=== PATIENT | female | born 1980 | race Caucasian/White ===

== ENCOUNTER 2019-12-14 11:04 | Outpatient (CLI) | payer MEDICARE, MEDICAID, SELFPAY ==
--- NOTE | 2019-12-14 11:15 | FL_ITS ---
WS: [id number] FL barium swallow modifd [id number] REASON FOR EXAM: Other dysphagia FLUOROSCOPY TIME: 3.8 minutes FINDINGS: Fluoroscopic guidance for speech pathology. There is no definite aspiration changes noted. The esophagus is mildly dilated suggesting mild esophagospasm and there appeared to be moderate reflu x seen. Please see speech pathology is workup for details. FL/FL barium swallow modifd [id number] IMPRESSION: Please see speech pathology workup. Mild esophageal spasm with moderate reflux.
== END 2019-12-14 11:05 | disposition home or self-care (01) ==
PROVIDERS: Family Provider Internal Medicine; PCP Internal Medicine; Visit Provider Internal Medicine
DX: K22.4 Dyskinesia of esophagus (principal); R13.10 Dysphagia, unspecified
CPT/HCPCS: 74230; 92611

== ENCOUNTER 2020-08-29 11:28 | Outpatient (CLI) | payer MEDICARE, MEDICAID, SELFPAY ==
--- NOTE | 2020-08-29 11:33 | MM_ITS ---
WS: [id number] BILATERAL DIGITAL SCREENING MAMMOGRAPHY WITH CAD CLINICAL INFORMATION: SCREENING HISTORY: Screening mammogram. No current complaints. COMPARISON: TECHNIQUE: Bilateral CC and MLO views. FINDINGS: Scattered fibroglandular densities bilaterally. No suspicious focal mass, asymmetry, calcifications, or architectural distortion. No evidence of malignancy. Punctate and lucent centered calcifications. MM/[place] [id number] IMPRESSION: BI-RADS: 2-Benign FOLLOW UP: 1 Year Follow-up Recommend return to annual screening mammography.
== END 2020-08-29 11:29 | disposition home or self-care (01) ==
LOC: RADSHAW 11:32
PROVIDERS: PCP Internal Medicine; Visit Provider Internal Medicine
DX: Z12.31 Encounter for screening mammogram for malignant neoplasm of breast (principal)
CPT/HCPCS: 77067

== ENCOUNTER 2020-12-31 11:28 | Outpatient (CLI) | payer MEDICARE, MEDICAID, SELFPAY ==
--- NOTE | 2020-12-31 11:30 | FL_ITS ---
WS: [id number] Modified barium swallow, 12/31/2020 Clinical Data: T17.320A - Food in larynx causing asphyxiation, initial encounter Comparison: None. Fluoroscopy time: 2.5 minutes. Findings: The patient initiated swallowing with minimal hesitation. There is only minimal residue in the pirifo rm sinus and vallecula which cleared quickly with swallowing. There was no penetration or aspiration. The distal esophagus showed dilatation and abnormal patella deep. The patient may have difficulty in opening the gastroesophageal sphincter. FL/FL barium swallow modifd [id number] Impression: 1. Good swallowing motility with only minimal residue which cleared quickly wit h swallowing. 2. No penetration or aspiration. 3. Retained barium in the distal esophagus and the patient may have narrowing o f the gastroesophageal region and difficulty opening the sphincter.
== END 2020-12-31 11:29 | disposition home or self-care (01) ==
LOC: RAD 11:33
PROVIDERS: PCP Internal Medicine; Visit Provider Internal Medicine
DX: T17.320A Food in larynx causing asphyxiation, initial encounter (principal); X58.XXXA Exposure to other specified factors, initial encounter
CPT/HCPCS: 74230; 92611

== ENCOUNTER 2021-11-07 11:51 | Emergency (ER) | payer MEDICARE, MEDICAID, SELFPAY ==
--- NOTE | 2021-11-07 11:57 | XRR_ITS ---
PROCEDURE INFORMATION: Exam: XR Chest Exam date and time: 11/07/2021 11:57 AM Age: 40 years old Clinical indication: Dyspnea and fever TECHNIQUE: Imaging protocol: XR of the chest. Views: 1 view. COMPARISON: XA FL barium swallow modifd [id number] 12/31/2020 12:50 PM FINDINGS: Lungs: There is a right basilar infiltrate consistent with pneumonia. Pleural spaces: Unremarkable. No pleural effusion. No pneumothorax. Heart/Mediastinum: The heart is normal for the AP projection. Bones/joints: Status post median sternotomy. XR/XR chest 1V portable [id number] IMPRESSION: Right lower lobe pneumonia.
--- NOTE | 2021-11-07 11:57 | ECG_ITS ---
[facility] Test Date: 2021-11-07 Pat Name: Alix Correia Department: Room: Gender: Female Dioramist: : 1980 Requested By: Bharath Cooper Order Number: [id number] Reading MD: INGRID GAMBLE Measurements Intervals [place] Rate: 69 P: 48 TN: 154 QRS: -70 QRSD: 146 T: 42 QT: 429 QTc: 460 Interpretive Statements SINUS RHYTHM LEFT AXIS DEVIATION [QRS AXIS < -30] RIGHT BUNDLE BRANCH BLOCK [120+ ms QRS DURATION, UPRIGHT V1, 40+ ms S IN I/aVL/V4/V5/V6] No previous ECG available for comparison Electronically Signed On 11-07-2021 19:56:34 LOCAL SALES ASSOCIATE by INGRID GAMBLE [email or web address]
[2021-11-07 12:13] VITALS: BP 105/62; PULSE 74; RESP 16; TEMP 36.9; O2SAT 94
[2021-11-07 13:01] VITALS: BP 103/68; PULSE 81; RESP 18; O2SAT 94
--- NOTE | 2021-11-07 13:16 | ED_ITS ---
HPI - COVID General: Chief Complaint: COVID symptoms Stated Complaint: Covid + O2 running low Time Seen by Provider: 11/07/21 11:55 Triage information: Has fever, cough or shortness of breath . Exposure to COVID + person last 14 days History of Present Illness: HPI Narrative: 40-year-old female presents to the [facility] with complaint of shortness of breath. Tested positive for COVID earlier this week. Only uses oxygen at night but they have recorded a few oxygen sats that were below 90 at home. Since arriving here she is maintained in the mid and upper 90s on room air. She has been congested and having cough b ut otherwise seems to be okay low-grade fever. MD complaint: known COVID positive Prior covid testing: yes, results known COVID 19 common symptoms: positive fever(s), chills, cough, non-productive cough, dyspnea, fatigue, body aches and nasal congestion; negative nausea, vomiting or diarrhea COVID 19 other sytmptoms: negative chest pain or requiring oxygen Onset (ago): day(s) Severity: mild Pertinent comorbid conditions: obesity and other (Down syndrome) Treatment prior to arrival: acetaminophen COVID Results: No Data to Display Review of Systems Const: Reports: fever(s), chills, body aches and fatigue ENMT: Reports: nasal congestion Card: Denies: chest pain, edema, dyspnea on exertion or orthopnea Resp: Reports: dyspnea and non-productive cough GI: Denies: abdominal pain, nausea, vomiting, hematemesis, coffee ground emesis, diarrhea, constipation, bloating, hematochezia or melena : Denies: flank pain, difficulty voiding, dysuria, urinary frequency or urinary urgency Skin/Breast: Denies: rash or pruritus PFSH ED PFSH: Medical History Alzheimer's dementia Auditory hallucination Surgical History H/O heart surgery Social History Smoking and tobacco status: never smoked Alcohol intake: never History of recent travel: No Physical Exam Const: GENERAL APPEARANCE: cooperative and comfortable HENMT: COMMON NORMALS: normocephalic, atraumatic and hearing grossly normal bilaterally HEAD & SCALP: normocephalic and atraumatic Resp: AUSCULTATION: crackles and wheezes Cardio: COMMON NORMALS: regular rate, regular rhythm and No murmurs present (Cardio) RATE: regular rate RHYTHM: regular rhythm HEART SOUNDS: Murmur heart sound present systolic Location: right sternal border Intensity: III/ GI: COMMON NORMALS: Soft to palpation and No hepatosplenomegaly present AUSCULTATION: Yes normoactive bowel sounds PALPATION: Yes Soft to palpation, No Tenderness to palpation present (GI), No Guarding due to palpation present (GI) and Yes No hepatosplenomegaly present Extremity: COMMON NORMALS: normal to inspection, capillary refill normal, no clubbing, cyanosis or edema, no calf tenderness and no pedal edema Skin: COMMON NORMALS: no rashes or lesions noted GENERAL SKIN EXAM: no rashes or lesions noted Course Vital Signs: Vital signs: Vital Signs Temperature 98.4 F 11/07/21 12:13 Pulse Rate 70 11/07/21 13:21 Respiratory Rate 16 11/07/21 13:21 Blood Pressure 110/66 11/07/21 13:21 Pulse Oximetry 95 11/07/21 13:55 MDM - COVID Lab Data: Labs: Lab Results 11/07/21 11/07/21 13:16 13:16 WBC 10.9 10^3/uL H 10 ^3/uL (4.0-10.0) RBC 3.64 10^6/uL L 10 ^6/uL (4.1-5.3) Hgb 12.2 g/dL g/dL (11.5-15.3) Hct 36.1 % L % (37.0-47.0) MCV 99.2 fl H fl (81-99) MCH 33.5 pg pg (28.0-34.0) MCHC 33.8 g/dL g/dL (30.0-36.0) RDW 12.5 % % (12.1-15.1) Plt Count 215 10^3/cmm 10^3 /cmm (130-400) MPV 10.0 fL fL (7.4-10.4) Neut % (Auto) 72.3 % % Lymph % (Auto) 17.6 % % Thurston % (Auto) 9.3 % % Eos % (Auto) 0.0 % % Baso % (Auto) 0.4 % % Neut # (Auto) 7.88 10^3/uL H 10 ^3/uL (1.8-7.7) Lymph # (Auto) 1.9 10^3/uL 10^3/ uL (0.8-4.8) Thurston # (Auto) 1.0 10^3/uL H 10^ 3/uL (0.2-0.9) Eos # (Auto) 0.0 10^3/uL 10^3/ uL (0.0-0.8) Baso # (Auto) 0.0 10^3/uL 10^3/ uL (0.0-0.1) Nucleated RBC % (a uto) 0 % % Nucleated RBCs # 0.0 /100WBC /100W BC Sodium 138 mmol/L mmol/L (136-145) Potassium 4.2 mmol/L mmol/L (3.5-5.1) Chloride 102 mmol/L mmol/L (98-107) Carbon Dioxide 22 mmol/L mmol/L (22-29) Anion Gap 18.2 (5-19) BUN 11 mg/dL mg/dL (6-20) Creatinine 0.8 mg/dL mg/dL (0.5-0.9) GFR Calculation 80.3 mL/min L mL/ min (90-130) Glucose 81 mg/dL mg/dL (65-115) Calculated Osmolal ity 284 mOsm/kg L mOs m/kg (285-295) Calcium 8.3 mg/dL L mg/dL (8.5-10.5) Total Bilirubin 0.6 mg/dL mg/dL (0.15-1.2) AST 24 U/L U/L (0-32) ALT 29 U/L U/L (0-33) Alkaline Phosphata se 85 IU/L IU/L (35-105) Creatine Kinase 30 U/L U/L (26-192) C-Reactive Protein 150.9 mg/L H mg/L (0.0-4.9) Total Protein 6.9 g/dL g/dL (6.6-8.7) Albumin 3.4 g/dL L g/dL (3.5-5.2) Globulin 3.5 g/dL g/dL (1.3-4.6) COVID Results: 2 No Data to Display Discharge Plan Discharge Patient Disposition: Home Clinical Impression: COVID-19, Trisomy 21 Condition: Stable Prescriptions: No Action hydrocortisone [Preparation H Hydrocortisone] 1 % cream 1 applic TOPICAL QID PRNRF: 0 melatonin 3 mg tablet extended release PO .at bedtime RF: 0 levocetirizine [Xyzal] 5 mg tablet 5 mg PO DAILY RF: 0 levothyroxine [Synthroid] 50 mcg tablet 50 mcg PO DAILY RF: 0 docusate sodium 100 mg capsule 100 mg PO DAILY RF: 0 melatonin 3 mg capsule 3 mg PO DAILY RF: 0 carbamide peroxide 6.5 % drops 5 drop EAR-BOTH Q12H RF: 0 multivitamin Tablet 1 tab PO DAILY RF: 0 ibuprofen 200 mg tablet 200 mg PO Q6H PRNRF: 0 diphenhydramine HCl [Benadryl Allergy] 25 mg tablet 25 mg PO .at bedtime PRNRF: 0 CeraVe Cream TOPICAL BID RF: 0 dextromethorphan-guaifenesin [Adult Robitussin Peak Cold DM] 10-100 mg/5 mL liquid 5 ml PO Q4H PRNRF: 0 magnesium hydroxide [Milk of Magnesia] 400 mg/5 mL suspension 15 ml PO DAILY PRNRF: 0 pediatric multivitamin Tablet,Chewable 1 tab PO DAILY RF: 0 bismuth subsalicylate 525 mg/15 mL suspension 525 mg PO .every 4 hours PRNRF: 0 acetaminophen [Tylenol] 325 mg capsule 325 mg PO .every 4 hours PRNRF: 0 alum-mag hydroxide-simeth 200-200-20 mg/5 mL suspension 10 ml PO QID PRNRF: 0 lactulose 10 gram/15 mL syrup PO RF: 0 risperidone 0.25 mg tablet 0.25 mg PO BID Qty: 90 RF: 3 Discharge Orders: Discharge ED (Routine); Ordered 11/07/21 Ordered By: Bharath Burrell Referrals: Jhon Rojas MD [Primary Care Provider] - Discharge Diet: Usual diet Discharge Activity: Increase activity as tolerated Patient Instructions: Opioid Safety Activity Restrictions/Additional Instructions: Case management will make arrangements for you to receive monoclonal antibodies in the infusion clinic next week. Continue to monitor home oxygen saturation with pulse oximeter if sats are less than 90% on room air at rest wear your oxygen at 2 L/min. If they are worse than this or do not improve with the oxygen return to the emergency room. Coding Level of Care Code ED Gaming Associate for Yaron Simeon Exam Detailed
[2021-11-07 13:21] VITALS: BP 110/66; PULSE 70; RESP 16; O2SAT 93
[2021-11-07 13:24] LABS: Basophils % 0.4 %; Hematocrit 36.1 % (37.0-47.0); Hemoglobin 12.2 g/dL (11.5-15.3); Lymphocytes # 1.9 10^3/uL (0.8-4.8); Lymphocytes % 17.6 %; Mean Corpuscular HGB Conc 33.8 g/dL (30.0-36.0); Mean Corpuscular Hemoglobin 33.5 pg (28.0-34.0); Mean Corpuscular Volume 99.2 fl (81-99); Monocytes % 9.3 %; Neutrophils # 7.88 10^3/uL (1.8-7.7); Neutrophils % 72.3 %; Nucleated Red Blood Cells % 0 %; Platelet Count 215 10^3/cmm (130-400); Red Blood Count 3.64 10^6/uL (4.1-5.3); Red Cell Distribution Width 12.5 % (12.1-15.1); White Blood Count 10.9 10^3/uL (4.0-10.0)
[2021-11-07 13:42] LABS: Alanine Aminotransferase 29 U/L (0-33); Albumin Level 3.4 g/dL (3.5-5.2); Alkaline Phosphatase 85 IU/L (35-105); Anion Gap 18.2 (5-19); Aspartate Amino Transferase 24 U/L (0-32); Blood Urea Nitrogen 11 mg/dL (6-20); C Reactive Protein 150.9 mg/L (0.0-4.9); Calcium 8.3 mg/dL (8.5-10.5); Carbon Dioxide 22 mmol/L (22-29); Chloride 102 mmol/L (98-107); Creatine Phosphokinase 30 U/L (26-192); Globulin 3.5 g/dL (1.3-4.6); Glomerular Filtration Rate 80.3 mL/min (90-130); Glucose 81 mg/dL (65-115); Osmolality Calculated 284 mOsm/kg (285-295); Potassium 4.2 mmol/L (3.5-5.1); Sodium 138 mmol/L (136-145); Total Bilirubin 0.6 mg/dL (0.15-1.2); Total Protein 6.9 g/dL (6.6-8.7)
[2021-11-07 13:55] VITALS: O2SAT 91; O2SAT 95
[2021-11-07 14:38] VITALS: BP 115/68; PULSE 72; RESP 20; O2SAT 94
== END 2021-11-07 14:30 | disposition home or self-care (01) ==
PROVIDERS: Emergency Provider Family Medicine; PCP Internal Medicine
DX: U07.1 COVID-19 (principal); Q90.9 Down syndrome, unspecified; G30.9 Alzheimer's disease, unspecified; F02.80 Dementia in other diseases classified elsewhere, unspecified severity, without behavioral disturbance, psychotic disturbance, mood disturbance, and anxiety
CPT/HCPCS: 71045; 80053; 82550; 85025; 86140; 93005; 99283

== ENCOUNTER 2021-11-10 10:45 | Inpatient (IN) | payer MEDICARE, MEDICAID, SELFPAY ==
[2021-11-10] VITALS (9 sets, daily range): BP systolic 95–107; BP diastolic 60–74; PULSE 67–88; RESP 16–21; TEMP 36.6; O2SAT 92–98; BMI 32.8
--- NOTE | 2021-11-10 11:04 | XR_ITS ---
WS: [id number] Exam: XR chest 1V portable [id number] Date/Time of Exam: 11/10/2021 11:07 AM Reason For Exam: covid, low sats Comparison 11/07/2021. Significantly increasing infiltrate in the right lung since prior study. Left l jhon remains relatively clear. Mild cardiac enlargement with signs of previous open heart surgery. Rig ht basal pleural effusion is developed. No pneumothorax. Bony structures are intact. XR/XR chest 1V portable [id number] IMPRESSION: 1. Increasing infiltrate in the mid and lower right lung with development of sm all right pleural effusion since prior study. 2. Mild cardiac enlargement with signs of previous open-heart surgery.
--- NOTE | 2021-11-10 11:30 | CTR_ITS ---
PROCEDURE INFORMATION: Exam: CTA Chest With Contrast Exam date and time: 11/10/2021 11:30 AM Age: 40 years old Clinical indication: Cough; Additional info: Covid /hypoxia TECHNIQUE: Imaging protocol: Computed tomographic angiography of the chest with contrast. Axial, coronal and sagittal reformatted images were created and reviewed. 3D rendering (Not supervised by radiologist): MIP and/or 3D reconstructed images were created by the technologist. Radiation optimization: All CT scans at this facility use at least one of these dose optimization techniques: automated exposure control; mA and/or kV adjustment per patient size (includes targeted exams where dose is matched to clinical indication); or iterative reconstruction. Contrast material: OMNI 350; Contrast volume: 65 ml; Contrast route: INTRAVENOUS (IV); COMPARISON: CR XR chest 1V portable [id number] 11/10/2021 11:15 AM RADIATION DOSE METRICS: Total DLP (mGy-cm): 515.79 FINDINGS: Pulmonary arteries: Contrast opacification satisfactory. No intraluminal filling defect. Aorta: Unremarkable. No aneurysm or dissection. Lungs: Dense right lower lobe consolidation. Mild interlobular septal thickening, more pronounced on the right, possibly secondary to edema. Pleural spaces: Small right pleural effusion. No pneumothorax. Heart: Evidence of open heart surgery. Mild cardiomegaly. No pericardial effusion. Mediastinal space: Mild gaseous and fluid distention of the esophagus. Lymph nodes: No pathologically enlarged lymph nodes. Bones/joints: No acute osseous abnormality. Soft tissues: Unremarkable. CT/CT angio chest PE protcl [id number] IMPRESSION: 1. No CT evidence of pulmonary embolism. 2. Dense right lower lobe consolidation, concerning for pneumonia. Follow-up to resolution is recommended. 3. Mild cardiomegaly with findings suggestive of interstitial edema 4. Small right pleural effusion. 5. Additional findings, as above.
--- NOTE | 2021-11-10 11:49 | ED_ITS ---
HPI - COVID General: Chief Complaint: ER Hold Stated Complaint: Covid positive, med reaction Time Seen by Provider: 11/10/21 11:18 Triage information: Has fever, cough or shortness of breath . Exposure to COVID + person last 14 days History of Present Illness: HPI Narrative: 40-year-old female who presents emergency room from the infusion center. She tested +4 days ago at an outpatient clinic in [facility] and today was in the infusion center to receive monoclonal antibodies. On arrival her oxygen sat was 85% and she was diverted to the emergency room on arrival here she is on 6 L by nasal cannula and O2 is at 100% I decreased her oxygen down to 3 L by nasal cannula and she is maintaining at 98%. Normally she will wear oxygen but only at night not during the day. Patient has significant Down syndrome is a little bit qu estionable on history she is complaining of some abdominal discomfort. She denies dysuria or chest pain staff that is whether from independent living center states they believe her symptoms started about the same days she was tested. That had several other positives in the [facility]. MD complaint: known COVID positive COVID Results: No Data to Display PFS ED PFSH: Medical History Alzheimer's dementia Auditory hallucination Encounter for other screening for malignant neoplasm of breast Trisomy 21 Surgical History H/O heart surgery Family History Other No significant family history Social History Smoking and tobacco status: never smoked Alcohol intake: never History of recent travel: No Physical Exam Const: GENERAL APPEARANCE: cooperative and comfortable ORIENTATION/CONSCIOUSNESS: Yes awake, Yes oriented to person, Yes oriented to place and Yes oriented to time HENMT: COMMON NORMALS: normocephalic, atraumatic and hearing grossly normal bilaterally HEAD & SCALP: normocephalic and atraumatic Neck/C-Spine: COMMON NORMALS: no JVD Resp: COMMON NORMALS: normal respiratory effort, No retractions and No use of accessory muscles AUSCULTATION: crackles and wheezes Cardio: COMMON NORMALS: no JVD, regular rate, regular rhythm and No murmurs present (Cardio) RATE: regular rate RHYTHM: regular rhythm GI: COMMON NORMALS: Soft to palpation and No hepatosplenomegaly present AUSCULTATION: Yes normoactive bowel sounds PALPATION: Yes Soft to palpation, No Tenderness to palpation present (GI), No Guarding due to palpation present (GI) and Yes No hepatosplenomegaly present Extremity: COMMON NORMALS: normal to inspection, capillary refill normal, no clubbing, cyanosis or edema, no calf tenderness and no pedal edema Neuro: SENSORIUM/ORIENTATION: Yes oriented to person, Yes oriented to place and Yes oriented to time Skin: COMMON NORMALS: no rashes or lesions noted GENERAL SKIN EXAM: no rashes or lesions noted Course Vital Signs: Vital signs: Vital Signs Temperature 97.5 F L 11/14/21 15:32 Pulse Rate 73 11/14/21 15:32 Respiratory Rate 16 11/14/21 15:32 Blood Pressure 109/68 11/14/21 15:32 Pulse Oximetry 91 11/14/21 15:32 MDM - COVID MDM Narrative Medical decision making narrative: Acute hypoxia with respiratory failure patient 85% on room air on presentation point was requiring 6 L we got her back down to 3 L and she is maintaining 90% but any effort at all and she desats significantly. She will require hospitalization for oxygen support and other treatments for Covid pneumonitis see admission orders. Discussed with hospitalist orders written Medical Records Attestation: I reviewed the patient's medical records. Lab Data Attestation: I reviewed the patient's lab results. Result diagrams: 11/14/21 04:59 11/12/21 04:50 Labs: Lab Results 11/10/21 11/10/21 11/10/21 11:35 11:55 11:55 WBC 12.6 10^3/uL H 10^3/uL (4.0-10.0) RBC 3.93 10^6/uL L 10^6/uL (4.1-5.3) Hgb 13.2 g/dL g/dL (11.5-15.3) Hct 38.5 % % (37.0-47.0) MCV 98.0 fl fl (81-99) MCH 33.6 pg pg (28.0-34.0) MCHC 34.3 g/dL g/dL (30.0-36.0) RDW 12.4 % % (12.1-15.1) Plt Count 271 10^3/cmm 10^3/cmm (130-400) MPV 9.7 fL fL (7.4-10.4) Neut % (Auto) 77.3 % % Lymph % (Auto) 14.0 % % Levy % (Auto) 7.7 % % Eos % (Auto) 0.0 % % Baso % (Auto) 0.5 % % Neut # (Auto) 9.75 10^3/uL H 10^3/uL (1.8-7.7) Lymph # (Auto) 1.8 10^3/uL 10^3/uL (0.8-4.8) Levy # (Auto) 1.0 10^3/uL H 10^3/uL (0.2-0.9) Eos # (Auto) 0.0 10^3/uL 10^3/uL (0.0-0.8) Baso # (Auto) 0.1 10^3/uL 10^3/uL (0.0-0.1) Nucleated RBC % (auto) 0 % % Nucleated RBCs # 0.0 /100WBC /100WBC D-Dimer Specimen Type Arterial Sample Site Brachial, left ABG pH 7.42 (7.35-7.45) ABG pCO2 41.7 mmHg mmHg (35-45) ABG pO2 81.2 mmHg mmHg (80.0-100.0) ABG HCO3 27.3 mmol/L H mmol/L (22-26) ABG Base Excess 2.5 mmol/L H mmol/L (-2.0-2.0) Johnnie Test N/a Hematocrit 39.3 % % (37-47) O2 Delivery Device Nc O2 Liters/Min 3.0 % % FiO2 32.0 % % Quality Technician Fiberglass ID Gd Sodium 135 mmol/L L mmol/L (136-145) Potassium 4.2 mmol/L mmol/L (3.5-5.1) Chloride 99 mmol/L mmol/L (98-107) Carbon Dioxide 22 mmol/L mmol/L (22-29) Anion Gap 18.2 (5-19) BUN 10 mg/dL mg/dL (6-20) Creatinine 0.8 mg/dL mg/dL (0.5-0.9) GFR Calculation 80.3 mL/min L mL/min (90-130) Glucose 83 mg/dL mg/dL (65-115) Calculated Osmolality 278 mOsm/kg L mOsm/kg (285-295) Calcium 8.4 mg/dL L mg/dL (8.5-10.5) Total Bilirubin 0.7 mg/dL mg/dL (0.15-1.2) AST 29 U/L U/L (0-32) ALT 35 U/L H U/L (0-33) Alkaline Phosphatase 145 IU/L H IU/L (35-105) C-Reactive Protein 337.0 mg/L H mg/L (0.0-4.9) Total Protein 7.6 g/dL g/dL (6.6-8.7) Albumin 3.6 g/dL g/dL (3.5-5.2) Globulin 4.0 g/dL g/dL (1.3-4.6) Procalcitonin 0.10 ng/mL ng/mL (0-0.5) 11/10/21 11:55 WBC RBC Hgb Hct MCV MCH MCHC RDW Plt Count MPV Neut % (Auto) Lymph % (Auto) Levy % (Auto) Eos % (Auto) Baso % (Auto) Neut # (Auto) Lymph # (Auto) Levy # (Auto) Eos # (Auto) Baso # (Auto) Nucleated RBC % (auto) Nucleated RBCs # D-Dimer 8.06 ug/mIFEU H ug/mIFEU (0-0.59) Specimen Type Sample Site ABG pH ABG pCO2 ABG pO2 ABG HCO3 ABG Base Excess Johnnie Test Hematocrit O2 Delivery Device O2 Liters/Min FiO2 Quality Technician Fiberglass ID Sodium Potassium Chloride Carbon Dioxide Anion Gap BUN Creatinine GFR Calculation Glucose Calculated Osmolality Calcium Total Bilirubin AST ALT Alkaline Phosphatase C-Reactive Protein Total Protein Albumin Globulin Procalcitonin COVID Results: No Data to Display Discharge Plan Discharge Patient Disposition: Admitted As Inpatient Admit Provider: Pablo Luther Clinical Impression: COVID-19, Acute respiratory failure with hypoxia Condition: Stable Coding Level of Care Code ED Cupola Melter Helper for Jazmyneg Cailin
[2021-11-10 11:55] LABS: ABG PCO2 41.7 mmHg (35-45); ABG PH Result 7.42 (7.35-7.45); Arterial Blood Gas Hematocrit 39.3 % (37-47); Base Excess ABG 2.5 mmol/L (-2.0-2.0); Blood Gas Operator Identificat GD; Blood Gas Sample Site Brachial, left; Blood Gas Sample Type Arterial; HCO3 ABG 27.3 mmol/L (22-26); Oxygen Device NC; PO2 ABG 81.2 mmHg (80.0-100.0)
[2021-11-10] MEDS: dexamethasone 10 mg/mL INJ 6 MG IVP (11:56)
[2021-11-10] MEDS: sodium chloride 0.9% 1,000 ML 999 ML IV (11:56)
[2021-11-10 12:05] LABS: Basophils # 0.1 10^3/uL (0.0-0.1); Basophils % 0.5 %; Hematocrit 38.5 % (37.0-47.0); Hemoglobin 13.2 g/dL (11.5-15.3); Lymphocytes # 1.8 10^3/uL (0.8-4.8); Mean Corpuscular HGB Conc 34.3 g/dL (30.0-36.0); Mean Corpuscular Hemoglobin 33.6 pg (28.0-34.0); Mean Platelet Volume 9.7 fL (7.4-10.4); Monocytes % 7.7 %; Neutrophils # 9.75 10^3/uL (1.8-7.7); Neutrophils % 77.3 %; Nucleated Red Blood Cells % 0 %; Platelet Count 271 10^3/cmm (130-400); Red Blood Count 3.93 10^6/uL (4.1-5.3); Red Cell Distribution Width 12.4 % (12.1-15.1); White Blood Count 12.6 10^3/uL (4.0-10.0)
[2021-11-10 12:33] LABS: Alanine Aminotransferase 35 U/L (0-33); Albumin Level 3.6 g/dL (3.5-5.2); Alkaline Phosphatase 145 IU/L (35-105); Anion Gap 18.2 (5-19); Aspartate Amino Transferase 29 U/L (0-32); Blood Urea Nitrogen 10 mg/dL (6-20); Calcium 8.4 mg/dL (8.5-10.5); Carbon Dioxide 22 mmol/L (22-29); Chloride 99 mmol/L (98-107); D Dimer 8.06 ug/mIFEU (0-0.59); Glomerular Filtration Rate 80.3 mL/min (90-130); Glucose 83 mg/dL (65-115); Osmolality Calculated 278 mOsm/kg (285-295); Potassium 4.2 mmol/L (3.5-5.1); Sodium 135 mmol/L (136-145); Total Bilirubin 0.7 mg/dL (0.15-1.2); Total Protein 7.6 g/dL (6.6-8.7)
[2021-11-10] MEDS: iohexol 350 mg/mL 100 mL Btl IV (13:14)
[2021-11-10] MEDS: remdesivir 200 MG in sodium chloride 0.9% (100 ml) 60 ML 100 MG IV (13:30)
--- NOTE | 2021-11-10 16:09 | P.HP_ITS ---
Providers/Chief Complaint Primary Care Provider: John Rojas MD Chief Complaint: Covid positive, med reaction History of Present Illness Alix Correia is a 40 year old female who tested positive for COVID-19 about 4 days ago, as per the caregiver who is at the bedside person who made meal around [place] tested positive with COVID-19. There are only 2 other members at the custodial. Alix was showing signs of fatigue, lethargy she was staying in the bed all day at baseline she used to use of oxygen at night, she was evalua [place] in the [facility] infusion clinic, she was saturating 85% on room air, she was directed to the ER for further evaluation Dr. Gonzalez decreased her nasal cannula from 6 L to 3 L, she was saturating well 98%, CTA ruled out PE however consistent with right lower lobe pneumonia At the time of my evaluation softer pressure noted, I requested 1 L bolus, start remdesivir, Decadron, ceftriaxone and azithromycin At baseline she is independent, conversive, she is very excited about her upcoming birthday on [birth year], she is usually incontinent, wears diapers but needs a lot of encouragement to avoid swelling herself with her excreta, she eats regular food however needs supervised/assisted feeding, small bites. Review of Systems General: Reports: ROS unobtainable due to medical condition (Down syndrome) Medications/Allergies Home Medications Medication Instructions Recorded Confirmed Last Taken Type acetaminophen 325 mg capsule 650 mg PO Q4H PRN cap 12/26/19 11/10/21 Unknown History bismuth subsalicylate 525 mg/15 mL 1,050 mg PO Q4H PRN ml 12/26/19 11/10/21 Unknown History oral suspension carbamide peroxide 6.5 % ear drops See Rx Instructions .ROUTE .COMPLEX 12/26/19 11/10/21 Unknown History ceramides 1,3,6-II 1 applic TOPICAL BID gm 12/26/19 11/10/21 Unknown History diphenhydramine HCl 25 mg tablet 50 mg PO BEDTIME PRN tab 12/26/19 11/10/21 Unknown History hydrocortisone 1 % topical cream 1 applic TOPICAL QID PRN 12/26/19 11/10/21 Unknown History ibuprofen 200 mg tablet 400 mg PO Q6H PRN 12/26/19 11/10/21 Unknown History levocetirizine 5 mg tablet 5 mg PO DAILY@08 12/26/19 11/10/21 11/10/21 History levothyroxine 50 mcg tablet 50 mcg PO DAILY@12/26/19 11/10/21 11/10/21 History magnesium hydroxide 400 mg/5 mL See Rx Instructions .ROUTE .COMPLEX 12/26/19 11/10/21 Unknown History oral suspension alum-mag hydroxide-simeth [Mylanta] 30 ml PO Q4H PRN 11/10/21 11/10/21 Unknown History bisacodyl [Dulcolax (bisacodyl)] See Rx Instructions .ROUTE .COMPLEX 11/10/21 11/10/21 Unknown History dextromethorphan-guaifenesin 5 ml PO Q4H PRN 11/10/21 11/10/21 11/10/21 07:00 History [Guiatussin DM] lactulose 15 ml PO BEDTIME@11/10/21 11/10/21 Unknown History melatonin 3 mg PO BEDTIME@11/10/21 11/10/21 11/09/21 History multivitamin 15 ml PO DAILY@11/10/21 11/10/21 11/10/21 History risperidone 0.25 mg PO BID@11/10/21 11/10/21 11/10/21 History Allergies Allergy/AdvReac Type Severity Reaction Status Date / Time No Known Allergies Allergy Verified 11/10/21 11:11 PFSH Acute PFSH: Medical History Alzheimer's dementia Auditory hallucination Encounter for other screening for malignant neoplasm of breast Surgical History H/O heart surgery Family History Other No significant family history Social History Smoking and tobacco status: never smoked Alcohol intake: never History of recent travel: No Vitals/I&O/Wt Last Vital Signs Temp 97.8 F 11/10/21 10:58 Pulse 86 11/10/21 14:51 Resp 16 11/10/21 14:51 BP 107/74 11/10/21 14:51 Pulse Ox 94 11/10/21 14:51 11/10/21 11/10/21 11/10/21 06:59 14:59 22:59 Intake Total 1060 / 1060 Balance 1060 / 1060 Weight last 48 hrs Weight 68.946 kg Physical Exam Narrative: EXAM NARRATIVE: Patient looks euvolemic Down syndrome features Currently on 3 L nasal cannula No acute respite distress No audible stridor or wheezing S1, S2 Patient is talking about her birthday No signs of edema No focal deficits Data : 11/10/21 11:55 11/10/21 11:55 Micro: Microbiology 11/10/21 13:15 Blood Culture - Preliminary Blood SPECIMEN COLLECTED A&P Assessment and plan (1) COVID-19: Status: Acute Additional A&P Information Acute hypoxia COVID-19 Right lower lobe pneumonia Start remdesivir, Decadron Add ceftriaxone and azithromycin for community-acquired pneumonia Check MRSA PCR DuoNeb every 4 as needed In case of worsening of hypoxia will consider baricitinib She tested positive around 11/06 Regular diet Need assisted feeding Urine incontinence is chronic She is experiencing diarrhea as well Full code Blood pressure we will give 1 L bolus Hypothyroidism: Continue levothyroxine Attestations Medical Necessity Statement*: More than 2 midnights anticipated Time Spent in Patient Care: Greater than 35 minutes Coding Level of Care Code Acute Water Technician for Chg Fwd Diagnoses COVID-19 U07.1
[2021-11-10] MEDS: lactated ringers 1,000 ML 999 ML IV (19:42)
[2021-11-11] VITALS (75 sets, daily range): BP systolic 98–122; BP diastolic 64–79; PULSE 63–81; RESP 17–18; TEMP 36.6–36.7; O2SAT 76–100
--- NOTE | 2021-11-11 02:44 | PC.NURSE ---
first dose of respiridone not adm at [facility] time of 1999 due to not receving dose from pharmacy until 99. Pt was asleep. Holding initial dose until pt awakens
[2021-11-11] MEDS: risperiDONE 0.25 mg Tablet PO ×3 (02:57→22:03)
--- NOTE | 2021-11-11 03:11 | PC.NURSE ---
pt unintentionally pulled IV during NS infusion. Bed changed. No other IV meds ordered. Decision made to hold on IV insertion until IV meds are required
[2021-11-11 05:47] LABS: Basophils % 0.1 %; Hematocrit 32.7 % (37.0-47.0); Hemoglobin 10.8 g/dL (11.5-15.3); Lymphocytes # 1.1 10^3/uL (0.8-4.8); Lymphocytes % 7.5 %; Monocytes # 0.8 10^3/uL (0.2-0.9); Monocytes % 5.5 %; Neutrophils % 86.5 %; Nucleated Red Blood Cells % 0 %; Platelet Count 270 10^3/cmm (130-400); Red Blood Count 3.27 10^6/uL (4.1-5.3); Red Cell Distribution Width 12.3 % (12.1-15.1); White Blood Count 14.2 10^3/uL (4.0-10.0)
[2021-11-11 06:05] LABS: Alanine Aminotransferase 47 U/L (0-33); Albumin Level 2.9 g/dL (3.5-5.2); Alkaline Phosphatase 134 IU/L (35-105); Anion Gap 14.9 (5-19); Aspartate Amino Transferase 44 U/L (0-32); Blood Urea Nitrogen 12 mg/dL (6-20); C Reactive Protein 260.7 mg/L (0.0-4.9); Carbon Dioxide 22 mmol/L (22-29); Chloride 103 mmol/L (98-107); Globulin 3.5 g/dL (1.3-4.6); Glomerular Filtration Rate 111.9 mL/min (90-130); Glucose 132 mg/dL (65-115); Osmolality Calculated 284 mOsm/kg (285-295); Potassium 3.9 mmol/L (3.5-5.1); Sodium 136 mmol/L (136-145); Total Bilirubin 0.3 mg/dL (0.15-1.2); Total Protein 6.4 g/dL (6.6-8.7)
[2021-11-11] MEDS: azithromycin 250 mg Tablet 500 MG PO (08:38)
[2021-11-11] MEDS: levothyroxine 50 mcg Tablet PO (08:38)
[2021-11-11] MEDS: cefTRIAXone 1,000 MG in sodium chloride 0.9% (plus) 50 ML 100 MG IV (08:39)
[2021-11-11] MEDS: dexamethasone 10 mg/mL INJ 6 MG IVP (08:40)
--- NOTE | 2021-11-11 10:53 | PM.PN ---
Subjective Subjective: Interval history: This morning patient is saturating well on 3 L nasal cannula No overnight events No signs of PE dense right lower lobe consolidation Vitals/I&O/Wt Last Vital Signs Temp 97.8 F 11/10/21 10:58 Pulse 84 11/10/21 22:43 Resp 20 H 11/10/21 22:43 BP 98/64 11/10/21 22:43 Pulse Ox 95 11/10/21 22:43 11/10/21 11/11/21 11/11/21 22:59 06:59 14:59 Intake Total 999 Balance 999 Weight last 48 hrs Weight 68.946 kg Physical Exam Narrative: EXAM NARRATIVE: Patient is comfortable Saturating well on 3 L nasal cannula Lymphedema Nonpitting edema Down syndrome features Distended abdomen visceral obesity No audible stridor or wheezing S1, S2 Data : 11/11/21 05:35 11/11/21 05:35 Micro: Microbiology 11/10/21 13:15 Blood Culture - Preliminary Blood SPECIMEN COLLECTED A&P Assessment and plan (1) COVID-19: Status: Acute (2) Alzheimer's dementia: Status: Acute Additional A&P Information COVID-19 Right lower lobe infiltrate Continue remdesivir and steroids For right lower lobe infiltrate anaerobic coverage I would add Augmentin and discontinue azithromycin Leukocytosis could be secondary to use of steroids Currently on 3 L nasal cannula Will like to monitor her one more day Hypothyroidism: Continue levothyroxine 50 mcg Patient need assisted spoon feeding with regular diet Patient seems to have soft systolic blood pressure Full code Will give another 500 mL bolus Attestations Medical Necessity Statement*: Continue medical management Time Spent in Patient Care: less than 15 minutes Coding Level of Care Code Acute Manager Portable for Chg Fwd Diagnoses COVID-19 U07.1 Alzheimer's dementia G30.9; F02.80
[2021-11-11] MEDS: lactated ringers 500 ML 999 ML IV (11:38)
--- NOTE | 2021-11-11 15:38 | PC.NURSE ---
report to Gisela HASKINS on medsurg, pt to transport via wheelchair
[2021-11-11] MEDS: amoxicillin-clav 875-125 mg Tablet 1 TAB PO (17:42)
[2021-11-11] MEDS: remdesivir 100 MG in sodium chloride 0.9% (100 ml) 80 ML IV (23:30)
[2021-11-12] VITALS (7 sets, daily range): BP systolic 101–124; BP diastolic 64–74; PULSE 60–83; RESP 17–20; TEMP 36.6–37.3; O2SAT 90–97
[2021-11-12 05:06] LABS: Basophils % 0.2 %; Hematocrit 32.4 % (37.0-47.0); Hemoglobin 10.7 g/dL (11.5-15.3); Lymphocytes # 1.7 10^3/uL (0.8-4.8); Lymphocytes % 8.8 %; Mean Corpuscular Hemoglobin 33.3 pg (28.0-34.0); Mean Corpuscular Volume 100.9 fl (81-99); Mean Platelet Volume 10.5 fL (7.4-10.4); Monocytes # 1.1 10^3/uL (0.2-0.9); Monocytes % 5.7 %; Neutrophils % 84.4 %; Nucleated Red Blood Cells % 0 %; Platelet Count 295 10^3/cmm (130-400); Red Blood Count 3.21 10^6/uL (4.1-5.3); Red Cell Distribution Width 12.7 % (12.1-15.1); White Blood Count 18.9 10^3/uL (4.0-10.0)
[2021-11-12 05:30] LABS: Anion Gap 13.1 (5-19); Blood Urea Nitrogen 14 mg/dL (6-20); C Reactive Protein 116.2 mg/L (0.0-4.9); Calcium 8.1 mg/dL (8.5-10.5); Carbon Dioxide 26 mmol/L (22-29); Chloride 107 mmol/L (98-107); Glomerular Filtration Rate 111.9 mL/min (90-130); Glucose 138 mg/dL (65-115); Osmolality Calculated 297 mOsm/kg (285-295); Potassium 4.1 mmol/L (3.5-5.1); Sodium 142 mmol/L (136-145)
[2021-11-12] MEDS: dexamethasone 10 mg/mL INJ 6 MG IVP (08:35)
[2021-11-12] MEDS: amoxicillin-clav 875-125 mg Tablet 1 TAB PO ×2 (08:36→17:32)
[2021-11-12] MEDS: risperiDONE 0.25 mg Tablet PO ×2 (08:36→20:38)
[2021-11-12] MEDS: levothyroxine 50 mcg Tablet PO (08:36)
--- NOTE | 2021-11-12 08:47 | PM.PN ---
Subjective Subjective: Interval history: This morning patient was on room air saturating 93% lethargic However answer my question appropriately She keeps asking about her birthday which done [birth year] Vitals/I&O/Wt Last Vital Signs Temp 98.6 F 11/12/21 08:00 Pulse 76 11/12/21 08:00 Resp 17 11/12/21 08:00 BP 124/69 11/12/21 08:00 Pulse Ox 90 11/12/21 08:00 11/11/21 11/12/21 11/12/21 22:59 06:59 14:59 Intake Total 290 / 290 680 / 970 Balance 290 / 290 680 / 970 Weight last 48 hrs Weight 68.946 kg Physical Exam Narrative: EXAM NARRATIVE: Sitting comfortably in her bed Saturating well on room air 93% Fatigue lethargic Nonfocal neuro exam No signs of edema No signs of respite distress Looks euvolemic S1, S2 Bilateral breath sound without adventitious rhonchi or crackles Data : 11/12/21 04:50 11/12/21 04:50 Micro: Microbiology 11/10/21 18:50 MRSA Culture - Final Nose 11/10/21 13:15 Blood Culture - Preliminary Blood NEGATIVE TO DATE A&P Assessment and plan (1) COVID-19: Status: Acute (2) Alzheimer's dementia: Status: Acute Additional A&P Information COVID-19 Acute hypoxia She was requiring 2 L of oxygen in the ER however this morning she was saturating 93% on room air, will need home O2 evaluation before discharge Severe leukocytosis 18,000 CRP 116 however no fever CRP trending down Will like to monitor her for at least next 48 hours, will discharge her back to the nursing home once leukocytosis started trending down Continue remdesivir and Decadron Full code Regular diet DVT prophylaxis on board Attestations Medical Necessity Statement*: Will like to monitor because of worsening leukocytosis Time Spent in Patient Care: less than 15 minutes Coding Level of Care Code Acute Sales Representative [employer] for g Fwd Diagnoses COVID-19 U07.1 Alzheimer's dementia G30.9; F02.80
[2021-11-12] MEDS: cefTRIAXone 1,000 MG in sodium chloride 0.9% (plus) 50 ML 100 MG IV (09:00)
[2021-11-12] MEDS: remdesivir 100 MG in sodium chloride 0.9% (100 ml) 80 ML IV (17:33)
[2021-11-13] VITALS (7 sets, daily range): BP systolic 100–114; BP diastolic 62–72; PULSE 64–84; RESP 16–19; TEMP 36.3–36.7; O2SAT 91–100
[2021-11-13 07:04] LABS: Basophils # 0.1 10^3/uL (0.0-0.1); Basophils % 0.4 %; Hematocrit 34.1 % (37.0-47.0); Hemoglobin 11.5 g/dL (11.5-15.3); Lymphocytes # 2.9 10^3/uL (0.8-4.8); Lymphocytes % 18.8 %; Mean Corpuscular HGB Conc 33.7 g/dL (30.0-36.0); Mean Corpuscular Hemoglobin 33.5 pg (28.0-34.0); Mean Corpuscular Volume 99.4 fl (81-99); Mean Platelet Volume 10.5 fL (7.4-10.4); Monocytes # 0.6 10^3/uL (0.2-0.9); Monocytes % 4.1 %; Neutrophils # 11.51 10^3/uL (1.8-7.7); Nucleated Red Blood Cells % 0.1 %; Platelet Count 351 10^3/cmm (130-400); Red Blood Count 3.43 10^6/uL (4.1-5.3); Red Cell Distribution Width 12.8 % (12.1-15.1); White Blood Count 15.4 10^3/uL (4.0-10.0)
[2021-11-13] MEDS: enoxaparin 40 mg/0.4 mL Syringe SUBCUT (08:04)
[2021-11-13] MEDS: cefTRIAXone 1,000 MG in sodium chloride 0.9% (plus) 50 ML 100 MG IV (08:04)
[2021-11-13] MEDS: dexamethasone 10 mg/mL INJ 6 MG IVP (08:04)
[2021-11-13] MEDS: risperiDONE 0.25 mg Tablet PO ×2 (08:05→19:48)
[2021-11-13] MEDS: amoxicillin-clav 875-125 mg Tablet 1 TAB PO ×2 (08:05→17:41)
[2021-11-13] MEDS: levothyroxine 50 mcg Tablet PO (08:05)
--- NOTE | 2021-11-13 08:48 | P.PN_ITS ---
Subjective Subjective: Interval history: Doing well on 2 L nasal cannula, 1 bowel movement, currently mechanical soft diet after speech therapy evaluation Plan to discharge her tomorrow, leukocytosis improving Spoke with Ary Sánchez as well in the room via her iPad Vitals/I&O/Wt Last Vital Signs Temp 97.5 F L 11/13/21 08:00 Pulse 78 11/13/21 08:00 Resp 18 11/13/21 08:00 BP 102/68 11/13/21 08:00 Pulse Ox 93 11/13/21 08:00 11/12/21 11/13/21 11/13/21 22:59 06:59 14:59 Intake Total 330 / 860 Output Total 300 / 300 Balance 330 / 860 -300 / 560 Physical Exam Narrative: EXAM NARRATIVE: Patient in semi-Rodriguez position 2 L nasal cannula No audible stridor or wheezing Abdomen soft No signs of edema Looks well-hydrated Fatigue and lethargy improving No confusion episodes Data : 11/13/21 06:24 11/12/21 04:50 Micro: Microbiology 11/10/21 13:15 Blood Culture - Preliminary Blood A&P Assessment and plan (1) COVID-19: Status: Acute (2) Trisomy 21: Status: Acute (3) Alzheimer's dementia: Status: Acute (4) Aspiration pneumonia: Status: Acute Additional A&P Information Aspiration pneumonia with underlying COVID-19 pneumonia Currently doing well on 2 L nasal cannula Antibiotics Augmentin and ceftriaxone Continue Decadron and remdesivir DVT prophylaxis Lovenox Plan to discharge tomorrow after home O2 eval Speech therapist recommended dysphagia 3 diet Attestations Medical Necessity Statement*: Discharge tomorrow after home O2 eval Time Spent in Patient Care: less than 15 minutes Coding Level of Care Code Acute Restrooms Or Lounges Maid for [facility] Fwd Diagnoses COVID-19 U07.1 Trisomy 21 Q90.9 Alzheimer's dementia G30.9; F02.80 Aspiration pneumonia J69.0
--- NOTE | 2021-11-13 09:44 | PC.NURSE ---
patient is coughing up large amounts of sputum, and vomiting after meals and with expelling sputum, Dr. Luther notified and will place zofran order.
[2021-11-13] MEDS: ondansetron 2 mg/ML SDV 2 mL 4 MG IVP (10:17)
[2021-11-13 12:49] LABS: Bacillus cereus group Not Detected (NOT DETECT); Bacillus subtillis group Not Detected (NOT DETECT); Corynebacterium Not Detected (NOT DETECT); Cutibacterium acnes (P.acnes) Not Detected (NOT DETECT); Enterococcus Not Detected (NOT DETECT); Enterococcus faecalis Not Detected (NOT DETECT); Enterococcus faecium Not Detected (NOT DETECT); Lactobacillus species Not Detected (NOT DETECT); Listeria Not Detected (NOT DETECT); Listeria monocytogenes Not Detected (NOT DETECT); Micrococcus Not Detected (NOT DETECT); Pan Candida Not Detected (NOT DETECT); Pan Gram-Negative Not Detected (NOT DETECT); Staphylococcus epidermidis Not Detected (NOT DETECT); Staphylococcus lugdunensis Not Detected (NOT DETECT); Staphylococcus species Not Detected (NOT DETECT); Streptococcus agalactiae Not Detected (NOT DETECT); Streptococcus anginosus group Not Detected (NOT DETECT); Streptococcus pneumoniae Not Detected (NOT DETECT); Streptococcus pyogenes Not Detected (NOT DETECT); Streptococcus species Not Detected (NOT DETECT)
[2021-11-13] MEDS: remdesivir 100 MG in sodium chloride 0.9% (100 ml) 80 ML IV (17:41)
[2021-11-14] VITALS (7 sets, daily range): BP systolic 102–109; BP diastolic 66–69; PULSE 59–73; RESP 16–17; TEMP 36.4–36.7; O2SAT 91–95
[2021-11-14 05:29] LABS: Basophils % 0.3 %; Hematocrit 36.4 % (37.0-47.0); Hemoglobin 12.1 g/dL (11.5-15.3); Lymphocytes # 2.3 10^3/uL (0.8-4.8); Lymphocytes % 18.1 %; Mean Corpuscular HGB Conc 33.2 g/dL (30.0-36.0); Mean Corpuscular Hemoglobin 33.2 pg (28.0-34.0); Mean Platelet Volume 10.4 fL (7.4-10.4); Monocytes # 0.5 10^3/uL (0.2-0.9); Monocytes % 4.2 %; Neutrophils # 9.62 10^3/uL (1.8-7.7); Neutrophils % 75.3 %; Nucleated Red Blood Cells % 0.3 %; Platelet Count 397 10^3/cmm (130-400); Red Blood Count 3.64 10^6/uL (4.1-5.3); Red Cell Distribution Width 12.7 % (12.1-15.1); White Blood Count 12.8 10^3/uL (4.0-10.0)
--- NOTE | 2021-11-14 09:07 | P.DS_ITS ---
Discharge Providers Date of Admission: 11/11/21 04:25 Date of Discharge: November 14, 2021 Attending Provider at Admission: Pablo Luther MD Attending Provider at Discharge: Pablo Luther MD Primary Care Provider: John Rojas MD Diagnoses at Discharge Discharge Diagnosis (1) COVID-19: Status: Acute (2) Trisomy 21: Status: Acute (3) Alzheimer's dementia: Status: Acute (4) Aspiration pneumonia: Status: Acute Reason for Visit Reason for Visit: Covid positive, med reaction Hospital Course Hospital Course History of Present Illness Alix Correia is a 40 year old female who tested positive for COVID-19 about 4 days ago, as per the caregiver who is at the bedside person who made meal around [place] tested positive with COVID-19. [facility] only 2 other [facility]. Alix was showing signs of fatigue, lethargy she was staying in the bed all day at baseline she used to use of oxygen at night, she was eval uated in the [facility] infusion clinic, she was saturating 85% on room air, she was directed to the ER for further evaluation Dr. Gonzalez decreased her nasal cannula from 6 L to 3 L, she was saturating well 98%, CTA ruled out PE however consistent with right lower lobe pneumonia At the time of my evaluation softer pressure noted, I requested 1 L bolus, start remdesivir, Decadron, ceftriaxone and azithromycin At baseline she is independent, conversive, she is very excited about her upcoming birthday on [birth year], she is usually incontinent, wears diapers but needs a lot of encouragement to avoid swelling herself with her excreta, she eats regular food however needs supervised/assisted feeding, small bites. Hospital course Patient was admitted for management and evaluation of hypoxia related to COVID- 19. Patient was given Decadron and remdesivir. She experienced bradycardia related to remdesivir however blood pressure remained stable. She remained afebrile, she was aspirating, speech therapy was done during this hospitalization. Speech therapist recommended nectar thick level 2 dysphagia diet. Her diet has been changed. She was initially given Zosyn which was changed to Augmentin. Toward her hospitalization she was requiring 2 L of oxygen at rest. Will be [facility] back to [facility] after home O2 eval. At the time of discharge I am adding Augmentin and albuterol rescue inhaler. She will get x-ray after 6 weeks for follow-up for pneumonia. Her leukocytosis has improved. Physical Exam Narrative: EXAM NARRATIVE: Patient in semi-Rodriguez position 2 L nasal cannula No audible stridor or wheezing Abdomen soft No signs of edema Looks well-hydrated Fatigue and lethargy improving No confusion episodes Discharge Data Data Completed and Pending: Completed Studies During Hospitalization Category Date Time Status CT angio chest PE protcl [id number] Stat Cat Scan 11/10/21 11:30 Completed XR chest 1V sue ble [id number] Stat Exams 11/10/21 11:04 Completed Pending at discharge Category Date Time Status Blood Culture Sta t Lab 11/10/21 13:15 Results Sputum Culture an d Gram Stain Routi ne Lab 11/11/21 01:16 Uncollected Labs from last 24 hours 11/14/21 04:59 WBC 12.8 H RBC 3.64 L Hgb 12.1 Hct 36.4 L MCV 100.0 H MCH 33.2 MCHC 33.2 RDW 12.7 Plt Count 397 MPV 10.4 Neut % (Auto) 75.3 Lymph % (Auto) 18.1 [place] % (Auto) 4.2 Eos % (Auto) 0.0 Baso % (Auto) 0.3 Neut # (Auto) 9.62 H Lymph # (Auto) 2.3 [place] # (Auto) 0.5 Eos # (Auto) 0.0 Baso # (Auto) 0.0 Nucleated RBC % (a uto) 0.3 Nucleated RBCs # 0.0 Vitals: Last Vital Signs Temp 98 F 11/14/21 08:00 Pulse 65 11/14/21 08:12 Resp 16 11/14/21 08:12 BP 105/69 11/14/21 08:00 Pulse Ox 94 11/14/21 08:12 Discharge Plan Discharge Patient Disposition: Xfer Other Condition: Stable Prescriptions: New amoxicillin-pot clavulanate 875-125 mg Tablet 1 tab PO BID Qty: 10 RF: 0 ondansetron HCl [Zofran] 4 mg tablet 4 mg PO DAILY 20 Days RF: 0 albuterol sulfate 90 mcg/actuation HFA aerosol inhaler 2 inh inhalation QID PRN (Reason: shortness of breath or wheezing) Qty: 8.5 RF: 3 Continued hydrocortisone [Preparation H Hydrocortisone] 1 % cream 1 applic TOPICAL QID PRN (Reason: unknown) RF: 0 levocetirizine [Xyzal] 5 mg tablet 5 mg PO DAILY@08 RF: 0 levothyroxine [Synthroid] 50 mcg tablet 50 mcg PO DAILY@08 RF: 0 carbamide peroxide 6.5 % drops See Rx Instructions .ROUTE .COMPLEX RF: 0 ibuprofen 200 mg tablet 400 mg PO Q6H PRN (Reason: Pain) RF: 0 diphenhydramine HCl [Benadryl Allergy] 25 mg tablet 50 mg PO BEDTIME PRN (Reason: Allergy Symptoms) RF: 0 CeraVe Cream 1 applic TOPICAL BID RF: 0 magnesium hydroxide [Milk of Magnesia] 400 mg/5 mL suspension See Rx Instructions .ROUTE .COMPLEX RF: 0 bismuth subsalicylate 525 mg/15 mL suspension 1,050 mg PO Q4H PRN (Reason: Diarrhea) RF: 0 acetaminophen [Tylenol] 325 mg capsule 650 mg PO Q4H PRN (Reason: Pain) RF: 0 multivitamin Liquid 15 ml PO DAILY@08 RF: 0 melatonin 3 mg Tablet 3 mg PO BEDTIME@21 RF: 0 Dulcolax (bisacodyl) 10 mg Suppository See Rx Instructions .ROUTE .COMPLEX RF: 0 Mylanta 200-200-20 mg/5 mL Suspension 30 ml PO Q4H PRN (Reason: Indigestion) RF: 0 Guiatussin DM 15-100 mg/5 mL Syrup 5 ml PO Q4H PRN (Reason: Cough) RF: 0 lactulose 10 gram/15 mL solution 15 ml PO BEDTIME@20 RF: 0 risperidone 0.25 mg tablet 0.25 mg PO BID@08,20 RF: 0 Discharge Orders: Discharge Order (Routine); Ordered 11/14/21 Ordered By: Pablo Luther Other Ambulatory Orders: XR chest 2V insp/exp [id number] (Routine) Timeframe: 6 Weeks Facility: [facility] - Location: [facility] Ordered By: Pablo Luther Discharge Diet: As Directed Patient Instructions: Alzheimer Disease (DC), Aspiration Precautions (DC), COVID-19 (Coronavirus Disease 2019) (DC) Activity Restrictions/Additional Instructions: [place] thick dysphagia diet level 3 Discharge Attestations Time Spent in Discharge Care*: less than 30 min Quality Metrics Clinical Quality Measures During this hospital stay, did patient experience: None Coding Level of Care Code Acute [facility] note Diagnoses COVID-19 U07.1 Trisomy 21 Q90.9 Alzheimer's dementia G30.9; F02.80 Aspiration pneumonia J69.0
[2021-11-14] MEDS: dexamethasone 10 mg/mL INJ 6 MG IVP (09:18)
[2021-11-14] MEDS: amoxicillin-clav 875-125 mg Tablet 1 TAB PO (09:18)
[2021-11-14] MEDS: levothyroxine 50 mcg Tablet PO (09:18)
[2021-11-14] MEDS: cefTRIAXone 1,000 MG in sodium chloride 0.9% (plus) 50 ML 100 MG IV (09:19)
[2021-11-14] MEDS: enoxaparin 40 mg/0.4 mL Syringe SUBCUT (09:31)
[2021-11-14] MEDS: risperiDONE 0.25 mg Tablet PO (09:31)
--- NOTE | 2021-11-14 11:10 | PC.SOCIAL ---
IMM update IMM updated with [facility], Amelia Lang, primary caregiver. Verbalized an understanding. Initialled, dated, timed, and placed in chart.
== END 2021-11-14 15:33 | disposition home or self-care (01) | DRG 177 ==
LOC: ER 11:18 → ER IP 11-11 04:36 → MEDSURG 11-11 14:56
PROVIDERS: Nurse Practitioner Family; Admitting Provider Internal Medicine; Emergency Provider Family Medicine; PCP Internal Medicine; Visit Provider Internal Medicine
DX: U07.1 COVID-19 (principal); J12.82 Pneumonia due to coronavirus disease 2019; Q90.9 Down syndrome, unspecified; G30.9 Alzheimer's disease, unspecified; F02.80 Dementia in other diseases classified elsewhere, unspecified severity, without behavioral disturbance, psychotic disturbance, mood disturbance, and anxiety; E03.9 Hypothyroidism, unspecified; R00.1 Bradycardia, unspecified; T37.5X5A Adverse effect of antiviral drugs, initial encounter
CPT/HCPCS: 36415; 36600; 71045; 71275; 80048; 80053; 82803; 84145; 85025; 85378; 86140; 87040; 87077; 87205; 87641; 92523; 92610; 94664; 96361; 96365; 96372; 96375; 99285; J0696; J1100; J1650; J2405; J7030; Q0144; Q9967

== ENCOUNTER 2021-12-03 12:20 | Outpatient (CLI) | payer MEDICARE, MEDICAID, SELFPAY ==
--- NOTE | 2021-12-03 12:34 | XR_ITS ---
WS: [id number] XR chest 2V insp/exp [id number] REASON FOR EXAM: ASP PNA FINDINGS: Compared to previous examination of 11/10/2021, the pulmonary opacities in both lungs are resolving. M oderate residual remains, predominating in the right lung. Prominent central pulmonary arteries again noted as demonstrated on previous chest x-ray and CT scan. No new chest findings. XR/XR chest 2V insp/exp [id number] IMPRESSION: Resolving infiltrates with moderate residual remaining.
== END 2021-12-03 12:21 | disposition home or self-care (01) ==
PROVIDERS: PCP Internal Medicine; Visit Provider Internal Medicine
DX: U07.1 COVID-19 (principal); J69.0 Pneumonitis due to inhalation of food and vomit
CPT/HCPCS: 71046

== ENCOUNTER 2022-06-09 14:21 | Outpatient (CLI) | payer MEDICARE, MEDICAID, SELFPAY ==
--- NOTE | 2022-06-09 14:43 | MM_ITS ---
WS: [id number] BILATERAL 2D DIGITAL SCREENING MAMMOGRAPHY WITH CAD CLINICAL INFORMATION: SCREENING HISTORY: Screening mammogram. No current complaints. COMPARISON: None. TECHNIQUE: Bilateral CC and MLO views. FINDINGS: Scattered fibroglandular densities bilaterally. Punctate and lucent centered calcifications. No suspi cious focal mass, asymmetry, calcifications, or architectural distortion. No evidence of malignancy. MM/[place] [id number] IMPRESSION: BI-RADS: 2-Benign FOLLOW UP: 1 Year Follow-up Recommend return to annual screening mammography.
== END 2022-06-09 14:22 | disposition home or self-care (01) ==
LOC: RAD 14:23
PROVIDERS: Visit Provider Family Medicine
DX: Z12.31 Encounter for screening mammogram for malignant neoplasm of breast (principal)
CPT/HCPCS: 77067

== ENCOUNTER → 2022-08-25 11:40 | Outpatient (BNVA) | payer MEDICARE, MEDICAID, SELFPAY | PROVIDERS: Visit Provider Family Medicine | DX: N39.0 Urinary tract infection, site not specified (principal) | CPT/HCPCS: 81000 ==

== ENCOUNTER 2022-09-29 06:00 | Outpatient (RCR) | payer MEDICARE, MEDICAID, SELFPAY | END 2022-10-23 23:59 | disposition home or self-care (01) | LOC: SST 06:00 | PROVIDERS: Visit Provider Family Medicine | DX: T17.320 Food in larynx causing asphyxiation (principal); K21.9 Gastro-esophageal reflux disease without esophagitis | CPT/HCPCS: 92610 ==

== ENCOUNTER 2022-10-24 06:00 | Outpatient (RCR) | payer MEDICARE, MEDICAID, SELFPAY | END 2022-11-23 23:59 | disposition home or self-care (01) | LOC: SST 06:00 | PROVIDERS: PCP Family Medicine; Visit Provider Family Medicine | DX: R13.12 Dysphagia, oropharyngeal phase (principal); K21.9 Gastro-esophageal reflux disease without esophagitis; T17.320 Food in larynx causing asphyxiation; X58.XXXD Exposure to other specified factors, subsequent encounter | CPT/HCPCS: 92526 ==

== ENCOUNTER → 2022-10-31 10:40 | Outpatient (BNVA) | payer MEDICARE, MEDICAID, SELFPAY | PROVIDERS: PCP Family Medicine; Visit Provider Registered Nurse Neonatal Intensive Care | DX: R05.9 Cough, unspecified (principal); J06.9 Acute upper respiratory infection, unspecified | CPT/HCPCS: 87400 ==

== ENCOUNTER 2022-11-08 09:41 | Emergency (ER) | payer MEDICARE, MEDICAID, SELFPAY ==
[2022-11-08 09:47] VITALS: BP 139/58; PULSE 75; RESP 17; TEMP 36.9; O2SAT 96
--- NOTE | 2022-11-08 10:00 | XR_ITS ---
WS: [id number] Portable AP upright chest, 11/08/2022 Clinical Data: syncope Comparison: Two-view chest, 12/03/2021 Findings: No nodules, masses or effusions are seen. The heart is normal. The pulmonary vascularity is not increased. No pneumothorax is seen. There are bilateral pulmonary opacities extending from both connie inferiorly into the lower lobes and lingula. Midline sternotomy sutures are present. The esophag us shows dilatation. XR/XR chest 1V portable [id number] Impression: 1. Bilateral patchy pulmonary opacities which could represent acute pneumonia e xtending from both connie inferiorly into the lower lobes and lingula of the left upper lobe. 2. Dilated esophagus unchanged.
--- NOTE | 2022-11-08 10:00 | CT_ITS ---
WS: [id number] CT HEAD NONCONTRAST HISTORY: dizzy, syncope TECHNIQUE: Contiguous axial imaging performed through the brain in 2.5 mm imaging. Bone and soft tiss ue windows. Sagittal and coronal reformats reviewed. All CT scans at [facility] use at least one of these dose optimization techniques: automated exposure control; mA and/or kV adjustment per pa tient size (includes targeted exams where dose is matched to clinical indication); or iterative recon struction. DLP: 1005.94 mGy.cm COMPARISON: None available. No acute intracranial hemorrhage, midline shift or mass effect. Very subtle area of increased density in the cortex of the RIGHT frontal lobe on the axial imaging is not visualized on the coronal or sag ittal reformats. I suspect this may be an area of artifact. No overt hemorrhage. Heavy calcification in the basal ganglia. No atrophy or prior infarcts or herniation. Ventricles: Normal size with no hydrocephalus. No inferior displacement of cerebellar tonsils. Paranasal sinuses: Mucoperiosteal thickening throughout the maxillary and ethmoid air cells. Mastoid air cells: Well pneumatized. Calvarium and scalp: Skull is intact with no soft tissue edema or swelling. CT/CT head wo con* [id number] IMPRESSION: 1. No areas of intracranial hemorrhage or edema identified. 2. No hydrocephalus.
--- NOTE | 2022-11-08 10:01 | ECG_ITS ---
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 Measurements Intervals [place] Rate: 86 P: 52 [place]: 165 QRS: -72 QRSD: 149 T: 56 QT: 392 QTc: 471 Interpretive Statements SINUS RHYTHM RIGHT BUNDLE BRANCH BLOCK [120+ ms QRS DURATION, UPRIGHT V1, 40+ ms S IN I/aVL/V4/V5/V6] LEFT ANTERIOR FASCICULAR BLOCK [QRS AXIS <= -45, QR IN I, RS IN II] Compared to ECG 11/07/2021 12:54:21 Left anterior fascicular block now present Left-axis deviation no longer present Electronically Signed On 11-08-2022 11:05:00 RETAIL SERVICE SPECIALIST by Brady Banerjee M.D. [email or web address]
--- NOTE | 2022-11-08 10:01 | W.ED.SYNCOPE ---
HPI - Syncope General: Chief Complaint: Syncope Stated Complaint: dizzy, cough, n/v/d Time Seen by Provider: 11/08/22 09:43 Source: patient and other (care staff) Mode of arrival: wheelchair Limitations: altered mental status (pt with baseline cognitive delays due to Trisomy 21) History of Present Illness: Patient is a 41-year-old female who presents to ED today along with her direct care staff for evaluation following a syncopal episode. Care staff states that patient stated this morning she needed to defecate and while on the toilet had a syncopal episode (was lowered to ground by staff-no fall). Care staff states that patient did not seem to be straining with a bowel movement she lost consciousness. She reports she had diarrhea yesterday. Patient is still complaining of dizziness to me. Care staff did state that she was able to ambulate from her house into the car and into the emergency department without much difficulty. Care staff states she has had a URI-like illness over the past week with cough and runny nose. No fevers. 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) Treatments prior to arrival: none Review of Systems General: Reports: Other (thought to be inaccurate as she says yeah to the majority of questions) Const: Denies: fever(s) or chills Card: Reports: syncope; Denies: chest pain, edema or swelling of feet/ankles Resp: Reports: non-productive cough and chest congestion; Denies: dyspnea, wheezing or hemoptysis GI: Reports: diarrhea (yesterday x 1); Denies: abdominal pain or vomiting : Denies: flank pain or dysuria Musc: Denies: neck pain, back pain, extremity pain or joint pain Skin/Breast: Denies: rash Neuro: Reports: headache(s) and dizziness; Denies: weakness in extremities, difficulty walking, confusion, Slurred speech present, difficulty communicating thoughts or seizure-like activity FOR[facility]LY [facility] ED PFSH: Medical History Alzheimer's dementia Auditory hallucination Choking due to food in larynx Encounter for other screening for malignant neoplasm of breast Hypothyroidism Trisomy 21 Surgical History H/O heart surgery Family History Other No significant family history Social History Smoking and tobacco status: never smoked Alcohol intake: never Caregiver/support person: Yes Lives independently: No Household members: other Details: roomates Housing: House History of recent travel: No Female Reproductive History: Spontaneous abortions: No Physical Exam Const: COMMON NORMALS: no acute distress, alert and well nourished GENERAL APPEARANCE: cooperative OTHER: staff reports Alix is at her mental baseline; I personally cared for patient years ago while working as her direct care staff and I would agree with this HENMT: COMMON NORMALS: normocephalic and atraumatic HEAD & SCALP: normal to inspection, normocephalic and atraumatic FACE & SINUS: normal facial exam Eye: GENERAL EYE: appearance normal, both eyes and all related structures Neck/C-Spine: COMMON NORMALS: full ROM and no lymphadenopathy Resp: COMMON NORMALS: normal respiratory effort and clear to auscultation bilaterally AUSCULTATION: clear to auscultation bilaterally OTHER: active dry cough Cardio: COMMON NORMALS: regular rate and regular rhythm RATE: regular rate RHYTHM: regular rhythm HEART SOUNDS: Murmur heart sound present GI: COMMON NORMALS: Normal to inspection, nondistended, normoactive bowel sounds present, Soft to palpation and non-tender INSPECTION: Yes central obesity AUSCULTATION: Yes normoactive bowel sounds PALPATION: Yes Soft to palpation : COMMON NORMALS: Yes no CVA tenderness BLADDER/KIDNEY EXAM: Yes no CVA tenderness Back/Pelvis: COMMON NORMALS: no CVA tenderness, thoracic and lumbar spine normal to inspection, no thoracic nor lumbar tenderness and thoraco-lumbar ROM normal Extremity: COMMON NORMALS: normal to inspection GENERAL: Yes normal exam except as noted Neuro: LA COMA SCALE: document GCS findings La coma scale eye opening: Spontaneous Dale coma scale verbal response: Orientated La coma scale motor response: Obey commands Dale coma scale total score: 15 COMMON NORMALS: CN's II-XII intact bilaterally, moves all extremities, no focal motor deficits and no sensory deficits noted SENSORIUM/ORIENTATION: Yes alert SPEECH: speech normal MOTOR EXAM: 5/5 motor strength present throughout Skin: COMMON NORMALS: no rashes or lesions noted GENERAL SKIN EXAM: no rashes or lesions noted Course Vital Signs: Vital signs: Vital Signs Temperature 98.5 F 11/08/22 09:47 Pulse Rate 75 11/08/22 09:47 Respiratory Rate 17 11/08/22 09:47 Blood Pressure 139/58 11/08/22 09:47 Pulse Oximetry 96 11/08/22 09:47 Oxygen Delivery Me thod 11/08/22 09:47 MDM - Syncope Medical Decision Making Patient was able to ambulate here and dizziness did not seem to be an issue for her. She arrives with normal vitals. Blood work shows a 14,000 white count. Chemistry panel is unremarkable. CXR shows bilateral patchy pulmonary opacities which could represent acute pneumonia. Given her symptoms of cough and a white count this is most likely. Head CT obtained due to complaints of syncope and dizziness. This was negative. EKG shows no ischemic changes and no changes when compared to previous. Patient was given IV antibiotics here and will be placed on PO antibiotics for home. Strict return to ED precautions given. Lab Data 11/08/22 10:20 11/08/22 10:20 Radiology Impressions Chest X-Ray 11/08/22 10:00 Impression: 1. Bilateral patchy pulmonary opacities which could represent acute pneumonia extending from both connie inferiorly into the lower lobes and lingula of the left upper lobe. 2. Dilated esophagus unchanged. Head CT 11/08/22 10:00 IMPRESSION: 1. No areas of intracranial hemorrhage or edema identified. 2. No hydrocephalus. Laboratory Results WBC 14.0 10^3/uL (4.0-10.0) H 11/08/22 10:20 RBC 4.38 10^6/uL (4.1-5.3) 11/08/22 10:20 Hgb 14.4 g/dL (11.5-15.3) 11/08/22 10:20 Hct 43.7 % (37.0-47.0) 11/08/22 10:20 MCV 99.8 fl (81-99) H 11/08/22 10:20 MCH 32.9 pg (28.0-34.0) 11/08/22 10:20 MCHC 33.0 g/dL (30.0-36.0) 11/08/22 10:20 RDW 13.6 % (12.1-15.1) 11/08/22 10:20 Plt Count 239 10^3/cmm (130-400) 11/08/22 10:20 MPV 10.1 fL (7.4-10.4) 11/08/22 10:20 Neut % (Auto) 86.3 % 11/08/22 10:20 Lymph % (Auto) 8.9 % 11/08/22 10:20 [place] % (Auto) 4.0 % 11/08/22 10:20 Eos % (Auto) 0.1 % 11/08/22 10:20 Baso % (Auto) 0.4 % 11/08/22 10:20 Neut # (Auto) 12.05 10^3/uL (1.8-7.7) H 11/08/22 10:20 Lymph # (Auto) 1.2 10^3/uL (0.8-4.8) 11/08/22 10:20 [place] # (Auto) 0.6 10^3/uL (0.2-0.9) 11/08/22 10:20 Eos # (Auto) 0.0 10^3/uL (0.0-0.8) 11/08/22 10:20 Baso # (Auto) 0.1 10^3/uL (0.0-0.1) 11/08/22 10:20 Nucleated RBC % (auto) 0 % 11/08/22 10:20 Nucleated RBCs # 0.0 /100WBC 11/08/22 10:20 Sodium 138 mmol/L (136-145) 11/08/22 10:20 Potassium 4.7 mmol/L (3.5-5.1) 11/08/22 10:20 Chloride 99 mmol/L (98-107) 11/08/22 10:20 Carbon Dioxide 28 mmol/L (22-29) 11/08/22 10:20 Anion Gap 15.7 (5-19) 11/08/22 10:20 BUN 15 mg/dL (6-20) 11/08/22 10:20 Creatinine 1.0 mg/dL (0.5-0.9) H 11/08/22 10:20 GFR Calculation 61.7 mL/min (90-130) L 11/08/22 10:20 Glucose 113 mg/dL (65-115) 11/08/22 10:20 Calculated Osmolality 288 mOsm/kg (285-295) 11/08/22 10:20 Calcium 9.8 mg/dL (8.5-10.5) 11/08/22 10:20 Total Bilirubin 0.4 mg/dL (0.15-1.2) 11/08/22 10:20 AST 22 U/L (0-32) 11/08/22 10:20 ALT 17 U/L (0-33) 11/08/22 10:20 Alkaline Phosphatase 86 U/L (35-105) 11/08/22 10:20 Troponin T Baseline 6 ng/L (0-10) 11/08/22 10:20 Total Protein 8.0 g/dL (6.6-8.7) 11/08/22 10:20 Albumin 4.3 g/dL (3.5-5.2) 11/08/22 10:20 Globulin 3.7 g/dL (1.3-4.6) 11/08/22 10:20 Urine Color Dark yellow (Yellow) 11/08/22 10:29 Urine Appearance Clear (CLEAR) 11/08/22 10:29 Urine pH 6.5 (5-7) 11/08/22 10:29 Ur Specific [place] 1.010 (1.005-1.030) 11/08/22 10:29 Urine Protein Neg (Negative) 11/08/22 10:29 Urine Glucose (UA) Norm (Normal) 11/08/22 10:29 Urine Ketones 1+ (Negative) H 11/08/22 10:29 Urine Blood 2+ (Negative) H 11/08/22 10:29 Urine Nitrate Negative (Negative) 11/08/22 10:29 Urine Bilirubin 1+ (Negative) H 11/08/22 10:29 Urine Urobilinogen 1 mg/dL (Negative) H 11/08/22 10:29 Ur Leukocyte Esterase Negative (Negative) 11/08/22 10:29 Urine RBC 0-4 /hpf (0-2) H 11/08/22 10:29 Urine WBC 0-4 /hpf (0-5) H 11/08/22 10:29 Ur Squamous Epith Cells 5-10 /hpf (0-5) H 11/08/22 10:29 Amorphous Sediment Not Reportable 11/08/22 10:29 Urine Bacteria 1+ /hpf (NONE) H 11/08/22 10:29 EKG Data EKG 1: EKG interpretation date: 11/08/22 EKG interpretation time: 10:28 Prior EKG tracings: available for review (11/07/21) Interpretation: Sinus rhythm Rate 86 RBBB No change from previous EKG dated 11/07/2021 Discharge Plan Discharge Patient Disposition: Home Clinical Impression: Pneumonia Syncope Qualifiers: Syncope type: unspecified Qualified Code(s): R55 - Syncope and collapse Condition: Stable Prescriptions: New azithromycin 250 mg tablet See Rx Instructions .ROUTE .COMPLEX Qty: 6 0RF Rx Instructions: take 500 mg today (day 1), then 250 mg for 4 days (days 2-5) albuterol sulfate 90 mcg/actuation HFA aerosol inhaler 2 inh INHALATION Q4H PRN (Reason: shortness of breath or wheezing) Qty: 6.7 0RF amoxicillin-pot clavulanate 875-125 mg tablet 1 tab PO BID Qty: 14 0RF No Action hydrocortisone [Preparation H Hydrocortisone] 1 % cream 1 applic TOPICAL QID PRN (Reason: unknown) ibuprofen 200 mg tablet 400 mg PO Q6H PRN (Reason: Pain) diphenhydramine HCl [Benadryl Allergy] 25 mg tablet 50 mg PO BEDTIME PRN (Reason: Allergy Symptoms) CeraVe Cream 1 applic TOPICAL BID Rx Instructions: apply to feet and legs bismuth subsalicylate 525 mg/15 mL suspension 1,050 mg PO Q4H PRN (Reason: Diarrhea) acetaminophen [Tylenol] 325 mg capsule 650 mg PO Q4H PRN (Reason: Pain) cetirizine [Allergy Relief (cetirizine)] 10 mg tablet 10 mg PO DAILY Qty: 30 5RF fluticasone propionate [Flonase Allergy Relief] 50 mcg/actuation spray,suspension 2 spray intranasal DAILY Qty: 16 5RF Rx Instructions: administer into each nostril pantoprazole 40 mg tablet,delayed release (DR/EC) 40 mg PO DAILY Qty: 60 2RF cetirizine [Zyrtec] 10 mg tablet 10 mg PO DAILY PRN (Reason: allergy symptoms) Qty: 30 3RF Ear Wax Removal Drops 6.5 % drops See Rx Instructions .ROUTE .COMPLEX Qty: 15 5RF Dose Instruction: FILL BOTH EARS TWICE DAILY FOR FOUR DAYS EACH MONTH *MAY IRRIGATE IF NEEDED* Rx Instructions: FILL BOTH EARS TWICE DAILY FOR FOUR DAYS EACH MONTH *MAY IRRIGATE IF NEEDED* magnesium hydroxide [Milk of Magnesia] 400 mg/5 mL suspension See Rx Instructions .ROUTE .COMPLEX Qty: 473 5RF Dose Instruction: TAKE 30ML BY MOUTH ON FOURTH DAY NEEDED IF NO BOWEL MOVEMENT IN THREE DAYS FOR CONSTIPATION Rx Instructions: TAKE 30ML BY MOUTH ON FOURTH DAY NEEDED IF NO BOWEL MOVEMENT IN THREE DAYS FOR CONSTIPATION Multi-Adis 9 mg iron/15 mL liquid See Rx Instructions .ROUTE .COMPLEX Qty: 236 5RF Dose Instruction: TAKE 15ML BY MOUTH EVERY DAY Rx Instructions: TAKE 15ML BY MOUTH EVERY DAY lactulose 10 gram/15 mL solution See Rx Instructions .ROUTE .COMPLEX Qty: 473 5RF Dose Instruction: TAKE 15ML BY MOUTH AT BEDTIME FOR CONSTIPATION Rx Instructions: TAKE 15ML BY MOUTH AT BEDTIME FOR CONSTIPATION levothyroxine [Synthroid] 50 mcg tablet 50 mcg PO DAILY@08 Qty: 90 1RF melatonin 3 mg tablet See Rx Instructions .ROUTE .COMPLEX Qty: 30 5RF Dose Instruction: TAKE ONE TABLET BY MOUTH AT BEDTIME FOR INSOMNIA Rx Instructions: TAKE ONE TABLET BY MOUTH AT BEDTIME FOR INSOMNIA levocetirizine 5 mg tablet See Rx Instructions .ROUTE .COMPLEX Qty: 30 7RF Dose Instruction: TAKE ONE TABLET BY MOUTH EVERY DAY AT 8am Rx Instructions: TAKE ONE TABLET BY MOUTH EVERY DAY AT 8am risperidone 0.25 mg tablet See Rx Instructions .ROUTE .COMPLEX Qty: 90 5RF Dose Instruction: TAKE ONE TABLET BY MOUTH TWICE DAILY Rx Instructions: TAKE ONE TABLET BY MOUTH TWICE DAILY guaifenesin 200 mg/5 mL liquid 400 mg PO ONCE Qty: 473 5RF Rx Instructions: Take 10ml once daily. Dulcolax (bisacodyl) 10 mg Suppository See Rx Instructions .ROUTE .COMPLEX Rx Instructions: 10 mg rectally on 5th day prn if no bm in 4 days alum-mag hydroxide-simeth 200-200-20 mg/5 mL Suspension 30 ml PO Q4H PRN (Reason: Indigestion) dextromethorphan-guaifenesin 15-100 mg/5 mL Syrup 5 ml PO Q4H PRN (Reason: Cough) albuterol sulfate 90 mcg/actuation HFA aerosol inhaler 2 inh inhalation Q8H PRN (Reason: shortness of breath or wheezing) Qty: 8.5 0RF Discharge Orders: Discharge ED (Routine); Ordered 11/08/22 Ordered By: Alecia Peterson Referrals: Hussain Santana DO [Primary Care Provider] - Patient Instructions: Syncope (DC), Pneumonia (ED) Activity Restrictions/Additional Instructions: Patient needs to start antibiotics immediately. I would like her to follow-up with her primary care provider by the end of the week for reevaluation. She needs to return to the emergency department for any further passing out episodes, severe chest pain or shortness of breath, labored breathing, fevers, inability to take her antibiotics, or any other concerns you may have. Coding Level of Care Code ED Advanced Practice Professional for Yaron Fwd Exam Comprehensive
[2022-11-08 10:46] LABS: Basophils # 0.1 10^3/uL (0.0-0.1); Basophils % 0.4 %; Eosinophils % 0.1 %; Hematocrit 43.7 % (37.0-47.0); Hemoglobin 14.4 g/dL (11.5-15.3); Lymphocytes # 1.2 10^3/uL (0.8-4.8); Lymphocytes % 8.9 %; Mean Corpuscular Hemoglobin 32.9 pg (28.0-34.0); Mean Corpuscular Volume 99.8 fl (81-99); Mean Platelet Volume 10.1 fL (7.4-10.4); Monocytes # 0.6 10^3/uL (0.2-0.9); Neutrophils # 12.05 10^3/uL (1.8-7.7); Neutrophils % 86.3 %; Nucleated Red Blood Cells % 0 %; Platelet Count 239 10^3/cmm (130-400); Red Blood Count 4.38 10^6/uL (4.1-5.3); Red Cell Distribution Width 13.6 % (12.1-15.1)
[2022-11-08 10:54] LABS: Protein Urine Neg (Negative); Urine Appearance Clear (CLEAR); Urine Color Dark Yellow (Yellow); pH Urine 6.5 (5-7)
[2022-11-08 10:55] VITALS: PULSE 77; O2SAT 91
[2022-11-08 10:55] LABS: Add Urine Culture? No; Add Urine Microscopic? YES; Bacteria Urine 1+ /hpf; Bilirubin Urine 1+ (Negative); Blood Urine 2+ (Negative); Glucose Urine UA Norm (Normal); Ketones Urine 1+ (Negative); Leukocyte Esterase Urine Negative (Negative); Nitrate Urine Negative (Negative); RBC Urine 0-4 /hpf (0-2); Urobilinogen Urine 1 mg/dL (Negative); WBC Urine 0-4 /hpf (0-5)
[2022-11-08 11:14] LABS: Alanine Aminotransferase 17 U/L (0-33); Albumin Level 4.3 g/dL (3.5-5.2); Alkaline Phosphatase 86 U/L (35-105); Anion Gap 15.7 (5-19); Aspartate Amino Transferase 22 U/L (0-32); Blood Urea Nitrogen 15 mg/dL (6-20); Calcium 9.8 mg/dL (8.5-10.5); Carbon Dioxide 28 mmol/L (22-29); Chloride 99 mmol/L (98-107); Globulin 3.7 g/dL (1.3-4.6); Glomerular Filtration Rate 61.7 mL/min (90-130); Glucose 113 mg/dL (65-115); Osmolality Calculated 288 mOsm/kg (285-295); Potassium 4.7 mmol/L (3.5-5.1); Sodium 138 mmol/L (136-145); Total Bilirubin 0.4 mg/dL (0.15-1.2)
[2022-11-08 11:17] LABS: Troponin(5th) Baseline 6 ng/L (0-10)
[2022-11-08] MEDS: cefTRIAXone 1,000 MG in sodium chloride 0.9% (plus) 50 ML 100 MG IV (11:44)
[2022-11-08 12:30] VITALS: BP 101/61; PULSE 78; O2SAT 92
[2022-11-08] MEDS: azithromycin 500 MG in sodium chloride 0.9% 250 ML 250 MG IV (12:44)
[2022-11-08 13:00] VITALS: BP 106/71; PULSE 91; O2SAT 99
[2022-11-08 13:28] LABS: Troponin 5 2HR 6.74 ng/L (0-10)
[2022-11-08 13:29] LABS: Troponin 5 2HR Delta 0.74 ABS# (0-10)
== END 2022-11-08 13:35 | disposition home or self-care (01) ==
PROVIDERS: Emergency Provider Physician Assistant; PCP Family Medicine
DX: R55 Syncope and collapse (principal); J18.9 Pneumonia, unspecified organism; G30.9 Alzheimer's disease, unspecified; F02.80 Dementia in other diseases classified elsewhere, unspecified severity, without behavioral disturbance, psychotic disturbance, mood disturbance, and anxiety; Q90.9 Down syndrome, unspecified
CPT/HCPCS: 70450; 71045; 80053; 81001; 84484; 85025; 93005; 96365; 96375; 99285; J0456; J0696; J7050

== ENCOUNTER 2022-12-08 08:27 | Outpatient (CLI) | payer MEDICARE, MEDICAID, SELFPAY ==
--- NOTE | 2022-12-08 08:53 | FL_ITS ---
WS: [id number] Barium swallow and esophagram, 12/08/2022 Clinical Data: DYSPHAGIA, OROPHARYNGEAL PHASE Comparison: None. Fluoroscopy time: 1min [id number] # of spot films: 25 Findings: The patient swallowed the thick and thin barium, and it flowed through the hypopharynx without hesita tion. No stricture, mass, polyp or erosion was seen. The barium entered the esophagus and there was absent motility throughout. The barium pooled in the e ntire esophagus from the thoracic inlet to the gastroesophageal junction. The esophageal mucosa appea red to be smooth with no contractions visualized. Distally there was narrowing and the barium proceed ed through the gastroesophageal junction slowly. There were midline sternotomy sutures present. The e sophagus demonstrated no masses, polyps, erosions or ulcerations. FL/FL barium swallow [id number] Impression: 1. Normal hypopharynx. 2. Markedly abnormal esophagus with poor motility and contractions from the tho racic inlet to the gastroesophageal junction and allows pooling of the barium c ontrast from the thoracic inlet to the gastroesophageal junction. 3. Narrowing of the gastroesophageal junction which permits only a small amount of barium to enter the stomach.
== END 2022-12-08 08:28 | disposition home or self-care (01) ==
PROVIDERS: PCP Family Medicine; Visit Provider Otolaryngology
DX: R13.12 Dysphagia, oropharyngeal phase (principal)
CPT/HCPCS: 74220

== ENCOUNTER 2022-12-28 08:38 | Outpatient (CLI) | payer MEDICARE, MEDICAID, SELFPAY ==
--- NOTE | 2022-12-28 08:57 | FL_ITS ---
WS: [id number] MODIFIED BARIUM SWALLOW HISTORY: Oropharyngeal dysphagia FLUOROSCOPY TIME: 3min [id number] # of spot films: 4 Comparison: 12/08/2022. Modified barium swallow was performed by the speech pathologist. Fluoroscopy was provided with the pa tient in a lateral projection. Multiple food consistencies were provided. All food consistencies were swallowed without difficulty. A few episodes of laryngeal penetration. Co ughing was elicited. This coughing was elicited due to extensive severe gastroesophageal reflux. The esophagus with dilated with reflux identified. There is mild narrowing of the distal esophagus which is probably due to achalasia. There was marked dysmotility and poor emptying of esophagus. These find ings were also described on 12/08/2022. FL/FL barium swallow modifd [id number] IMPRESSION: 1. Severe gastroesophageal reflux to the hypopharynx. 2. Dilated esophagus with dysmotility was described on the prior examination. Narrowing of the distal gastroesophageal junction is probably due to achalasia. 3. No obvious improvement of reflux since the prior study. Please see speech therapist report also for recommendations.
== END 2022-12-28 08:39 | disposition home or self-care (01) ==
PROVIDERS: PCP Family Medicine; Visit Provider Otolaryngology
DX: R13.12 Dysphagia, oropharyngeal phase (principal); K21.9 Gastro-esophageal reflux disease without esophagitis
CPT/HCPCS: 74230; 92611

== ENCOUNTER 2023-07-06 15:07 | Outpatient (CLI) | payer MEDICARE, MEDICAID, SELFPAY ==
--- NOTE | 2023-07-06 15:26 | MM_ITS ---
WS: [id number] VIEWS: MLO and CC views both breasts. Comparison made with prior exam of 07/10/2018, 07/13/2019, 08/29/2020, 06/09/2022.. Findings: There was no sign of mass, architectural distortion or suspicious calcification in either breast. The breasts are almost entirely fatty Impression: MM/[id number] BI-RADS: 2-Benign finding. FOLLOW-UP: 1 Year Follow-up This mammogram was also analyzed by the Computer Aided Detection System R2 Imag e Teletype Operator.
== END 2023-07-06 15:08 | disposition home or self-care (01) ==
PROVIDERS: PCP Family Medicine; Visit Provider Family Medicine
DX: Z12.31 Encounter for screening mammogram for malignant neoplasm of breast (principal)
CPT/HCPCS: 77067

== ENCOUNTER 2024-07-09 12:00 | Outpatient (CLI) | payer MEDICARE, MEDICAID, SELFPAY ==
--- NOTE | 2024-07-09 12:08 | MM_ITS ---
WS: [id number] BILATERAL 2D DIGITAL SCREENING MAMMOGRAPHY WITH CAD CLINICAL INFORMATION: SCREENING HISTORY: Screening mammogram. No current complaints. COMPARISON: 2022 TECHNIQUE: Bilateral CC and MLO views. FINDINGS: Scattered fibroglandular densities bilaterally. No suspicious focal mass, asymmetry, calcifications, or architectural distortion. No evidence of malignancy. Incidental punctate and lucent centered calci fications. MM/[id number] IMPRESSION: DENSITY: There are scattered areas of fibroglandular density. BI-RADS: 2 - Benign. FOLLOW UP: 1 Year Follow-up Recommend return to annual screening mammography.
== END 2024-07-09 12:08 | disposition home or self-care (01) ==
PROVIDERS: PCP Family Medicine; Visit Provider Family Medicine
DX: Z12.31 Encounter for screening mammogram for malignant neoplasm of breast (principal); R92.333 Mammographic heterogeneous density, bilateral breasts; R92.1 Mammographic calcification found on diagnostic imaging of breast
CPT/HCPCS: 77067

== ENCOUNTER → 2025-02-06 12:46 | Outpatient (BNVA) | payer MEDICARE, MEDICAID, SELFPAY | PROVIDERS: PCP Family Medicine; Visit Provider Podiatrist Foot & Ankle Surgery | DX: L60.3 Nail dystrophy (principal) | CPT/HCPCS: 99203 ==

== ENCOUNTER 2025-07-18 14:53 | Outpatient (CLI) | payer MEDICARE, MEDICAID, SELFPAY ==
--- NOTE | 2025-07-18 14:59 | MM_ITS ---
WS: [id number] BILATERAL SCREENING DIGITAL TOMOSYNTHESIS MAMMOGRAM WITH CAD HISTORY: ANNUAL SCREENING COMPARISON: 07/09/2024, 07/06/2023 Bilateral CC and MLO views with tomosynthesis and synthetic mammography submitted. Computer aided detection analyzed. Breast composition: The breasts are almost entirely fatty. No suspicious masses, microcalcifications or architectural distortion. Benign calcifications in each breast. MM/MM scr BI tomosynthesis [id number] IMPRESSION: BI-RADS: 2 - Benign. FOLLOW UP: 1 Year Follow-up
== END 2025-07-18 14:54 | disposition home or self-care (01) ==
PROVIDERS: PCP Family Medicine; Visit Provider Family Medicine
DX: Z12.31 Encounter for screening mammogram for malignant neoplasm of breast (principal); R92.313 Mammographic fatty tissue density, bilateral breasts; R92.1 Mammographic calcification found on diagnostic imaging of breast
CPT/HCPCS: 77063; 77067